=== PATIENT | male | born 1940 | race Caucasian/White ===

== ENCOUNTER 2017-08-25 12:45 | Emergency (ER) | payer OTHER, BC ==
[~2017-08-25] VITALS: Ht 180.3 cm; Wt 85.5 kg
[~2017-08-25 12:45] MED LIST: ASPIRIN325 MG PO; Aspirin PO; LIPITOR20 MG PO; METOPROLOL SUCC50 MG PO; MULTAQ400 MG PO; Pradaxa PO; ZESTRIL,PRINIVI30 MG PO
[2017-08-25 14:24] LABS: HEMATOCRIT 42.3 % (38.0-50.0); HEMOGLOBIN 14.3 G/DL (12.5-16.6); MCH 32.7 PG (29.0-34.0); MCHC 33.8 G/DL (30.0-36.0); MCV 96.8 FL (86-99); PLATELET COUNT 166 K/uL (156-360); RBC DIS.WIDTH-CV 14.3 % (11.8-14.6); RBC DIS.WIDTH-SD 50.7 % (39-53); RED BLOOD COUNT 4.37 M/uL (4.00-5.50); WHITE BLOOD COUNT 8.8 K/uL (4.1-10.2)
[2017-08-25 14:35] LABS: CHLORIDE 101 mEq/L (99-109); POTASSIUM 3.8 mEq/L (3.7-5.4); SODIUM 137 mEq/L (136-147)
[2017-08-25 14:37] LABS: GLUCOSE 102 mg/dL (70-99)
[2017-08-25 14:41] LABS: CREATININE 1.1 mg/dL (0.6-1.3); GFR ESTIMATE (CALCULATED) > 59 mL/min/ (58.99-99999)
[2017-08-25 14:42] LABS: UREA NITROGEN (BUN) 24 mg/dL (9-23)
[2017-08-25] MEDS ORDERED: LEVAQUIN750 MG PO (15:22)
[2017-08-25 15:35] VITALS: BP 112/68
== END 2017-08-25 15:36 | disposition home or self-care (01) ==
LOC: EME 12:45
PROVIDERS: Emergency Medicine
DX: J18.9 Pneumonia, unspecified organism (principal); E11.9 Type 2 diabetes mellitus without complications; I10 Essential (primary) hypertension; Z79.82 Long term (current) use of aspirin; Z79.01 Long term (current) use of anticoagulants; Z99.89 Dependence on other enabling machines and devices; Z87.891 Personal history of nicotine dependence; Z82.49 Family history of ischemic heart disease and other diseases of the circulatory system; Z85.9 Personal history of malignant neoplasm, unspecified
CPT/HCPCS: 80048; 85027; 87040; 87502; 99281; 99284